=== PATIENT | male | born 1955 | race Caucasian/White ===

== ENCOUNTER 2024-07-01 12:54 | Outpatient (RCR) | payer MEDICARE, BC, SELFPAY | END 2024-07-01 23:59 | disposition home or self-care (01) | LOC: RPT 12:54 | PROVIDERS: ATTENDING PHYSICIAN Physician Assistant Surgical | DX: M62.81 Muscle weakness (generalized) (principal) | CPT/HCPCS: 97110; 97112; 97163; 97530; 97535 ==

== ENCOUNTER 2024-07-15 12:56 | Outpatient (RCR) | payer MEDICARE, BC, SELFPAY | END 2024-07-15 23:59 | disposition home or self-care (01) | LOC: RPT 12:56 | PROVIDERS: ATTENDING PHYSICIAN Physician Assistant Surgical | DX: M62.81 Muscle weakness (generalized) (principal); R26.89 Other abnormalities of gait and mobility; Z73.6 Limitation of activities due to disability; M06.9 Rheumatoid arthritis, unspecified; R53.0 Neoplastic (malignant) related fatigue; R26.81 Unsteadiness on feet; Z85.01 Personal history of malignant neoplasm of esophagus | CPT/HCPCS: 97110; 97112; 97530; 97535 ==

== ENCOUNTER → 2024-07-19 08:35 | Outpatient (REF) | payer MEDICARE, BC, SELFPAY | LOC: RST 08:35 | PROVIDERS: ATTENDING PHYSICIAN Surgery; FAMILY PHYSICIAN Internal Medicine | DX: R13.10 Dysphagia, unspecified (principal) | CPT/HCPCS: 74230; 92611 ==

== ENCOUNTER 2024-08-15 10:37 | Outpatient (RCR) | payer MEDICARE, BC, SELFPAY | END 2024-08-15 23:59 | disposition home or self-care (01) | LOC: RST 10:37 | PROVIDERS: FAMILY PHYSICIAN Physician Assistant Surgical | DX: R13.10 Dysphagia, unspecified (principal); Z85.01 Personal history of malignant neoplasm of esophagus; Z86.74 Personal history of sudden cardiac arrest; Z90.49 Acquired absence of other specified parts of digestive tract | CPT/HCPCS: 92526; 92610 ==

== ENCOUNTER 2024-08-29 15:00 | Outpatient (RCR) | payer MEDICARE, BC, SELFPAY | END 2024-08-29 23:59 | disposition home or self-care (01) | LOC: RPT 15:00 | PROVIDERS: ATTENDING PHYSICIAN Physician Assistant Surgical | DX: M62.81 Muscle weakness (generalized) (principal); R26.89 Other abnormalities of gait and mobility; Z73.6 Limitation of activities due to disability; M06.9 Rheumatoid arthritis, unspecified; R13.13 Dysphagia, pharyngeal phase; R49.0 Dysphonia; R53.0 Neoplastic (malignant) related fatigue; R26.81 Unsteadiness on feet; Z85.01 Personal history of malignant neoplasm of esophagus; Z86.74 Personal history of sudden cardiac arrest | CPT/HCPCS: 97110; 97112; 97140; 97530 ==

== ENCOUNTER 2024-09-14 13:58 | Outpatient (RCR) | payer MEDICARE, BC, SELFPAY | END 2024-09-15 07:32 | disposition home or self-care (01) | LOC: RPT 13:58 | PROVIDERS: ATTENDING PHYSICIAN Physician Assistant Surgical | DX: M62.81 Muscle weakness (generalized) (principal); R26.89 Other abnormalities of gait and mobility; Z73.6 Limitation of activities due to disability; M06.9 Rheumatoid arthritis, unspecified; R13.13 Dysphagia, pharyngeal phase; R49.0 Dysphonia; R53.0 Neoplastic (malignant) related fatigue; R26.81 Unsteadiness on feet; Z85.01 Personal history of malignant neoplasm of esophagus; Z86.74 Personal history of sudden cardiac arrest | CPT/HCPCS: 97010; 97110; 97112; 97164; 97530 ==

== ENCOUNTER 2024-12-27 18:06 | Outpatient (RCR) | payer MEDICARE, BC, SELFPAY | END 2024-12-27 23:59 | disposition home or self-care (01) | LOC: RPT 18:06 | PROVIDERS: ATTENDING PHYSICIAN Internal Medicine | DX: R26.89 Other abnormalities of gait and mobility (principal); R53.1 Weakness; R53.0 Neoplastic (malignant) related fatigue; Z73.6 Limitation of activities due to disability; M62.81 Muscle weakness (generalized); R29.3 Abnormal posture; R26.2 Difficulty in walking, not elsewhere classified; C15.9 Malignant neoplasm of esophagus, unspecified; E11.9 Type 2 diabetes mellitus without complications; Z93.1 Gastrostomy status; Z90.49 Acquired absence of other specified parts of digestive tract | CPT/HCPCS: 97110; 97163; 97530 ==

== ENCOUNTER 2025-01-27 15:02 | Outpatient (RCR) | payer MEDICARE, BC, SELFPAY | END 2025-01-27 23:59 | disposition home or self-care (01) | LOC: RPT 15:02 | PROVIDERS: ATTENDING PHYSICIAN Internal Medicine | DX: R26.89 Other abnormalities of gait and mobility (principal); R53.1 Weakness; R53.0 Neoplastic (malignant) related fatigue; Z73.6 Limitation of activities due to disability; M62.81 Muscle weakness (generalized); R29.3 Abnormal posture; R26.2 Difficulty in walking, not elsewhere classified; C15.9 Malignant neoplasm of esophagus, unspecified; E11.9 Type 2 diabetes mellitus without complications; Z93.1 Gastrostomy status; Z90.49 Acquired absence of other specified parts of digestive tract | CPT/HCPCS: 97110; 97112; 97530 ==

== ENCOUNTER 2025-02-24 11:10 | Outpatient (RCR) | payer MEDICARE, BC, SELFPAY | END 2025-02-24 23:59 | disposition home or self-care (01) | LOC: RPT 11:10 | PROVIDERS: ATTENDING PHYSICIAN Internal Medicine | DX: R26.89 Other abnormalities of gait and mobility (principal); R53.1 Weakness; R53.0 Neoplastic (malignant) related fatigue; Z73.6 Limitation of activities due to disability; M62.81 Muscle weakness (generalized); R29.3 Abnormal posture; R26.2 Difficulty in walking, not elsewhere classified; C15.9 Malignant neoplasm of esophagus, unspecified; E11.9 Type 2 diabetes mellitus without complications; Z93.1 Gastrostomy status; Z90.49 Acquired absence of other specified parts of digestive tract | CPT/HCPCS: 97110; 97112; 97530 ==

== ENCOUNTER 2025-03-31 08:16 | Outpatient (RCR) | payer MEDICARE, BC, SELFPAY | END 2025-03-31 23:59 | disposition home or self-care (01) | LOC: RPT 08:16 | PROVIDERS: ATTENDING PHYSICIAN Internal Medicine | DX: R26.89 Other abnormalities of gait and mobility (principal); R53.1 Weakness; R53.0 Neoplastic (malignant) related fatigue; Z73.6 Limitation of activities due to disability; M62.81 Muscle weakness (generalized); R29.3 Abnormal posture; R26.2 Difficulty in walking, not elsewhere classified; C15.9 Malignant neoplasm of esophagus, unspecified; E11.9 Type 2 diabetes mellitus without complications; Z93.1 Gastrostomy status; Z90.49 Acquired absence of other specified parts of digestive tract | CPT/HCPCS: 97110; 97112; 97140; 97530 ==

== ENCOUNTER 2025-04-24 10:02 | Outpatient (RCR) | payer MEDICARE, BC, SELFPAY | END 2025-04-25 07:21 | disposition home or self-care (01) | LOC: RPT 10:02 | PROVIDERS: ATTENDING PHYSICIAN Internal Medicine | DX: R26.89 Other abnormalities of gait and mobility (principal); R53.1 Weakness; R53.0 Neoplastic (malignant) related fatigue; Z73.6 Limitation of activities due to disability; M62.81 Muscle weakness (generalized); R29.3 Abnormal posture; R26.2 Difficulty in walking, not elsewhere classified; C15.9 Malignant neoplasm of esophagus, unspecified; E11.9 Type 2 diabetes mellitus without complications; Z93.1 Gastrostomy status; Z90.49 Acquired absence of other specified parts of digestive tract | CPT/HCPCS: 97110; 97112; 97530 ==